=== PATIENT | male | born 2000 ===

== ENCOUNTER 2020-01-13 16:08 | Emergency (ER) | payer MEDICAID ==
[2020-01-13 17:32] VITALS: BP 113/76
[2020-01-13] MEDS ORDERED: ACETAMINOPHEN 500 MG TAB PO ONE (18:55)
--- NOTE | 2020-01-13 18:55 | Emergency Department Report ---
ED Headache HPI - General Chief Complaint: Headache Stated Complaint: MIGRAINE Time Seen by Provider: 01/13/20 18:17 - History of Present Illness Initial Comments: The patient was evaluated in the emergency department for symptoms described in the history of present illness. He/she was evaluated in the context of the global COVID-19 pandemic, which necessitated consideration that the patient might be at risk for infection with the virus that causes COVID-19. Institutional protocols and algorithms that pertain to the evaluation of patients at risk for COVID-19 are in a state of rapid change based on information released by regulatory bodies including the CDC and federal and state organizations. These policies and algorithms were followed during the patient's care in the emergency department. Please note that these policies, procedures and recommendations changed on a rapid basis. 19-year-old male was brought in to the ER by EMS for headache. Patient states that he is at the [facility] program in [place] and they would not give him anything for his headache. Patient states that Motrin usually helps with his migraines but ibuprofen white coated causes him to vomit. Patient denies any head injury and states that his headache is all over. Patient is taking nothing for his pain. Patient denies any nausea no vomiting no diarrhea no ear pain no change of vision no lights sensitivity. Patient is playing games on his cell phone. Patient has a past medical history of asthma schizophrenia, bipolar, ADHD, PTSD and OCD. Allergies/Adverse Reactions: Allergies ibuprofen Allergy (Verified 01/13/20 17:26) Hives Home Medications: Ambulatory Orders Acetaminophen [Tylenol] 1,000 mg PO Q6HR PRN #20 tablet 01/13/20 ED Review of Systems ROS: Stated complaint: MIGRAINE Other details as noted in HPI Comment: All other systems reviewed and negative ED Past Medical Hx - Past Medical History Previous Medical History?: Yes Hx Psychiatric Treatment: Yes (Schizophrenis, Bipolar, ADHD, PTSD and OCD) Hx Asthma: Yes - Surgical History Past Surgical History?: No - Social History Smoking Status: Former Smoker Substance Use Type: None - Medications Home Medications: Home Medications Medication Instructions Recorded Confirmed Last Taken Type Acetaminophen [Tylenol] 1,000 mg PO Q6HR PRN #20 tablet 01/13/20 Unknown Rx ED Physical Exam - General Limitations: No Limitations General appearance: alert, in no apparent distress - Head Head exam: Present: atraumatic, normocephalic - Eye Eye exam: Present: normal appearance - ENT ENT exam: Present: mucous membranes moist - Neck Neck exam: Present: normal inspection - Respiratory Respiratory exam: Absent: respiratory distress, accessory muscle use - Cardiovascular Cardiovascular Exam: Present: regular rate, normal rhythm. Absent: systolic murmur, diastolic murmur, rubs, gallop - GI/Abdominal GI/Abdominal exam: Present: soft, normal bowel sounds - Rectal Rectal exam: Present: deferred - Extremities Exam Extremities exam: Present: normal inspection - Back Exam Back exam: Present: normal inspection - Neurological Exam Neurological exam: Present: alert, oriented X3, normal gait - Expanded Neurological Exam Expanded Cranial nerves: EOM's Intact: Normal, Gag Reflex: Normal, Tongue Deviation: Normal, Nystagmus: Normal, Facial Sensation: Normal, Facial Palsy with Forehead Movement: Normal, Facial Palsy without Forehead Movement: Normal Cerebellar function: Finger to Nose: Normal, Heel to Keenan: Normal, Romberg: Normal Upper motor neuron: Daniel Neglect: Normal, Pronator Drift: Normal, Sensory Extinction: Normal Sensory exam: Upper Extremity Light Touch: Normal, Upper Extremity Pin Prick: Normal, Upper Extremity Temperature: Normal, UE 2 Point Discrimination: Normal, Lower Extremity Light Touch: Normal, Lower Extremity Pin Prick: Normal, Lower Extremity Temperature: Normal, LE 2 Point Discrimination: Normal Motor strength exam: RUE: 4, LUE: 4, RLE: 4, LLE: 4 Best Eye Response ([place]): (4) open spontaneously Best Motor Response ([place]): (6) obeys commands Best Verbal Response ([place]): (5) oriented Willis Total: 15 - Psychiatric Psychiatric exam: Present: normal affect, normal mood - Skin Skin exam: Present: warm, dry, intact, normal color. Absent: rash ED Course Vital Signs 01/13/20 17:29 Temperature 97.5 F L Pulse Rate 82 Respiratory 20 Rate Blood Pressure 113/76 O2 Sat by Pulse 97 Oximetry ED Medical Decision Making - Medical Decision Making 19-year-old male was brought in to the ER by EMS for headache. Patient states that he is at the [facility] program in [place] and they would not give him anything for his headache. Patient states that Motrin usually helps with his migraines but ibuprofen white coated causes him to vomit. Patient denies any head injury and states that his headache is all over. Patient is taking nothing for his pain. Patient denies any nausea no vomiting no diarrhea no ear pain no change of vision no lights sensitivity. Patient is playing games on his cell phone. Patient has a past medical history of asthma schizophrenia, bipolar, ADHD, PTSD and OCD. Patient be given 1 g of acetaminophen. Patient be discharged home with prescription for acetaminophen 500 mg 2 tabs p.o. every 6 hours as needed for headache. Instructed to increase his water intake. Critical care attestation.: If time is entered above; I have spent that time in minutes in the direct care of this critically ill patient, excluding procedure time. ED Disposition Clinical Impression: Headache Qualifiers: Headache type: unspecified Headache chronicity pattern: acute headache Intractability: intractable Qualified Code(s): R51.9 - Headache, unspecified Disposition: DC-01 TO HOME OR SELFCARE Is pt being admited?: No Does the pt Need Aspirin: No Condition: Stable Instructions: Acute Headache (ED) Additional Instructions: Please take Tylenol as needed for pain management. Prescriptions: Acetaminophen [Tylenol] 1,000 mg PO Q6HR PRN #20 tablet PRN Reason: Pain , Severe (7-10) Referrals: You are, primary care provider [Other] - 3-5 Days
== END 2020-01-13 19:25 | disposition home or self-care (01) ==
LOC: ED 16:08
DX: R51.9 Headache, unspecified (principal); F20.9 Schizophrenia, unspecified; J45.909 Unspecified asthma, uncomplicated; F31.9 Bipolar disorder, unspecified; Z79.899 Other long term (current) drug therapy; Z88.8 Allergy status to other drugs, medicaments and biological substances

== ENCOUNTER 2020-01-18 10:03 | Emergency (ER) | payer MEDICAID ==
[2020-01-18 10:28] VITALS: BP 116/72
[2020-01-18] MEDS ORDERED: ONDANSETRON 4 MG/2 ML INJ IV ONE (14:17)
--- NOTE | 2020-01-18 14:20 | Emergency Department Report ---
ED Abdominal Pain HPI - General Chief Complaint: Abdominal Pain Stated Complaint: ABD PAINS Time Seen by Provider: 01/18/20 13:59 Source: patient Mode of arrival: Ambulatory Limitations: No Limitations - History of Present Illness Initial Comments: Is a pleasant 19-year-old male who presents the emergency department chief complaint of generalized abdominal pain for the past 2 days. Patient reports it is periumbilical and associated with nausea, vomiting and diarrhea. He reports he has had some sweats but denies any fevers. He has past medical history of schizophrenia, bipolar, ADHD, PTSD, OCD and asthma. He denies any bloody or bilious vomiting, bloody stools, melena, chest pain, shortness of breath, weakness, headache, blurry vision or any other associated symptoms. - Related Data Previous Rx's Medication Instructions Recorded Last Taken Type Acetaminophen [Tylenol] 1,000 mg PO Q6HR PRN #20 tablet 01/13/20 Unknown Rx Dicyclomine [Bentyl] 10 mg PO QID #20 capsule 01/18/20 Unknown Rx Ondansetron [Zofran Odt] 4 mg PO Q8HR #30 tab.rapdis 01/18/20 Unknown Rx Allergies Allergy/AdvReac Type Severity Reaction Status Date / Time ibuprofen Allergy Hives Verified 01/18/20 10:21 ED Review of Systems ROS: Stated complaint: ABD PAINS Other details as noted in HPI Comment: All other systems reviewed and negative Constitutional: denies: chills, fever Eyes: denies: eye pain, eye discharge, vision change ENT: denies: ear pain, throat pain Respiratory: denies: cough, shortness of breath, wheezing Cardiovascular: denies: chest pain, palpitations Endocrine: no symptoms reported Gastrointestinal: as per HPI, abdominal pain, nausea, vomiting, diarrhea Genitourinary: denies: urgency, dysuria Musculoskeletal: denies: back pain, joint swelling, arthralgia Skin: denies: rash, lesions Neurological: denies: headache, weakness, paresthesias Psychiatric: denies: anxiety, depression Hematological/Lymphatic: denies: easy bleeding, easy bruising ED Past Medical Hx - Past Medical History Hx Psychiatric Treatment: Yes (Schizophrenis, Bipolar, ADHD, PTSD and OCD) Hx Asthma: Yes - Surgical History Past Surgical History?: No - Social History Smoking Status: Never Smoker Substance Use Type: None - Medications Home Medications: Home Medications Medication Instructions Recorded Confirmed Last Taken Type Acetaminophen [Tylenol] 1,000 mg PO Q6HR PRN #20 tablet 01/13/20 Unknown Rx Dicyclomine [Bentyl] 10 mg PO QID #20 capsule 01/18/20 Unknown Rx Ondansetron [Zofran Odt] 4 mg PO Q8HR #30 tab.rapdis 01/18/20 Unknown Rx ED Physical Exam - General Limitations: No Limitations General appearance: alert, in no apparent distress - Head Head exam: Present: atraumatic, normocephalic - Eye Eye exam: Present: normal appearance, PERRL, EOMI Pupils: Present: normal accommodation - ENT ENT exam: Present: normal exam, normal orophraynx, mucous membranes moist - Neck Neck exam: Present: normal inspection, full ROM. Absent: tenderness, meningismus - Respiratory Respiratory exam: Present: normal lung sounds bilaterally. Absent: respiratory distress, wheezes, rales, rhonchi, stridor - Cardiovascular Cardiovascular Exam: Present: regular rate, normal rhythm, normal heart sounds. Absent: systolic murmur, diastolic murmur, rubs, gallop - GI/Abdominal GI/Abdominal exam: Present: tenderness (Generalized tenderness to palpation, tenderness over McBurney's point, no rebound), guarding, normal bowel sounds - Rectal Rectal exam: Present: deferred - Extremities Exam Extremities exam: Present: normal inspection, full ROM, normal capillary refill. Absent: tenderness, calf tenderness - Back Exam Back exam: Present: normal inspection, full ROM. Absent: tenderness, CVA tenderness (R), CVA tenderness (L) - Neurological Exam Neurological exam: Present: alert, oriented X3, normal gait - Psychiatric Psychiatric exam: Present: normal affect, normal mood - Skin Skin exam: Present: warm, dry, intact, normal color. Absent: rash ED Course Vital Signs 01/18/20 10:22 Temperature 98.3 F Pulse Rate 72 Respiratory 16 Rate Blood Pressure 116/72 O2 Sat by Pulse 96 Oximetry ED Medical Decision Making - Lab Data Result diagrams: 01/18/20 14:16 01/18/20 14:16 Lab Results 01/18/20 01/18/20 Range/Units 14:16 14:16 WBC 7.9 (4.5-11.0) K/mm3 RBC 5.12 H (3.65-5.03) M/mm3 Hgb 15.9 H (11.8-15.2) gm/dl Hct 45.0 (35.5-45.6) % MCV 88 (84-94) fl MCH 31 (28-32) pg MCHC 35 H (32-34) % RDW 12.8 L (13.2-15.2) % Plt Count 214 (140-440) K/mm3 Lymph % (Auto) 22.4 (13.4-35.0) % Ferry % (Auto) 8.0 H (0.0-7.3) % Eos % (Auto) 1.1 (0.0-4.3) % Baso % (Auto) 0.3 (0.0-1.8) % Lymph # (Auto) 1.8 (1.2-5.4) K/mm3 Ferry # (Auto) 0.6 (0.0-0.8) K/mm3 Eos # (Auto) 0.1 (0.0-0.4) K/mm3 Baso # (Auto) 0.0 (0.0-0.1) K/mm3 Seg Neutrophils % 68.2 (40.0-70.0) % Seg Neutrophils # 5.4 (1.8-7.7) K/mm3 Sodium 137 (137-145) mmol/L Potassium 4.3 (3.6-5.0) mmol/L Chloride 97.3 L (98-107) mmol/L Carbon Dioxide 25 (22-30) mmol/L Anion Gap 19 mmol/L BUN 12 (9-20) mg/dL Creatinine 0.8 (0.8-1.3) mg/dL Estimated GFR > 60 ml/min BUN/Creatinine Ratio 15 % Glucose 84 (75-100) mg/dL Calcium 9.7 (8.4-10.2) mg/dL Total Bilirubin 0.40 (0.1-1.2) mg/dL AST 18 (5-40) units/L ALT 23 (7-56) units/L Alkaline Phosphatase 119 (35-129) units/L Total Protein 7.8 (6.3-8.2) g/dL Albumin 4.8 (3.9-5) g/dL Albumin/Globulin Ratio 1.6 % Lipase 31 (13-60) units/L - Radiology Data Radiology results: report reviewed Cat Scan Report Signed Patient: HAIDER GOMEZ MR#: [id number] : 2000 Acct:[id number] Age/Sex: 19 / M ADM Date: 01/18/20 Loc: ED Attending Dr: Ordering Physician: JANET SPRINGER Date of Service: 01/18/20 Procedure(s): CT abdomen pelvis w con Accession Number(s): [id number] cc: JANET SPRINGER CT ABDOMEN AND PELVIS WITH CONTRAST HISTORY: severe abdomianl pain, N/V COMPARISON: None. TECHNIQUE: Axial CT images were obtained through the abdomen and pelvis after 100 cc of Omnipaque 300 intravenously. Sagittal and coronal reformatted images. All CT scans at this location are performed using CT dose reduction for ALARA by means of automated exposure control. FINDINGS: CT ABDOMEN: Lung Bases: Clear. Liver: No significant abnormality. Biliary: No significant abnormality. Spleen: No significant abnormality. Unenlarged. Pancreas: No significant abnormality. Adrenals: No significant abnormality. Kidneys: No significant abnormality. Lymphatics: No lymphadenopathy. Vasculature: No significant abnormality. Bowel/Peritoneum: No significant abnormality. No free air. No free fluid. Normal appendix. CT PELVIS: : No significant abnormality. Osseous Structures: No significant abnormality. Additional Findings: None IMPRESSION: No significant abnormality. Signer Name: David Barker Jr, MD Signed: 01/18/2020 4:23 PM Workstation Name: [id number] Transcribed By: TTR Dictated By: DAVID BARKER JR, MD Electronically Authenticated By: DAVID BARKER JR, MD Signed Date/Time: 01/18/201622 DD/ 161 - Medical Decision Making Patient's labs returned relatively unremarkable CT was unremarkable. The patient's repeat abdominal exam was benign. Patient felt much better and wanted to go home. Will discharge patient stable condition with outpatient follow-up and supportive treatment. He was instructed to return to the emerge department changing worsening symptoms. He verbalized understanding the diagnosis, treatment plan and follow-up instructions and all his questions were answered. - Differential Diagnosis Appendicitis, small bowel obstruction, colitis, cholecystitis Critical care attestation.: If time is entered above; I have spent that time in minutes in the direct care of this critically ill patient, excluding procedure time. ED Disposition Clinical Impression: Nonspecific abdominal pain Nausea and vomiting Qualifiers: Vomiting type: unspecified Vomiting Intractability: non-intractable Qualified Code(s): R11.2 - Nausea with vomiting, unspecified Disposition: - TO HOME OR SELFCARE Is pt being admited?: No Condition: Stable Instructions: Acute Abdominal Pain (ED) Prescriptions: Dicyclomine [Bentyl] 10 mg PO QID #20 capsule Ondansetron [Zofran Odt] 4 mg PO Q8HR #30 tab.rapdis Referrals: PRIMARY CARE, [Primary Care Provider] - 3-5 Days [facility] [Provider Group] - 3-5 Days Forms: Work/School Release Form(ED) Time of Disposition: 16:41
[2020-01-18 15:01] LABS: Basophils % (Auto) 0.3 % (0.0-1.8); Eosinophils # (Auto) 0.1 K/mm3 (0.0-0.4); Eosinophils % (Auto) 1.1 % (0.0-4.3); Hemoglobin 15.9 gm/dl (11.8-15.2); Lymphocytes # (Auto) 1.8 K/mm3 (1.2-5.4); Lymphocytes % (Auto) 22.4 % (13.4-35.0); Mean Corpuscular HGB Conc 35 % (32-34); Mean Corpuscular Volume 88 fl (84-94); Monocytes # (Auto) 0.6 K/mm3 (0.0-0.8); Platelet Count 214 K/mm3 (140-440); Red Blood Count 5.12 M/mm3 (3.65-5.03); Red Cell Distribution Width 12.8 % (13.2-15.2)
[2020-01-18 15:20] LABS: Alanine Aminotransferase 23 units/L (7-56); Albumin 4.8 g/dL (3.9-5); BUN/Creatinine Ratio 15; Blood Urea Nitrogen 12 mg/dL (9-20); Calcium 9.7 mg/dL (8.4-10.2); Hemolysis Index 20
--- NOTE | 2020-01-18 16:27 | Cat Scan Report ---
CT ABDOMEN AND PELVIS WITH CONTRAST HISTORY: severe abdomianl pain, N/V COMPARISON: None. TECHNIQUE: Axial CT images were obtained through the abdomen and pelvis after 100 cc of Omnipaque 300 intravenously. Sagittal and coronal reformatted images. All CT scans at this location are performed using CT dose reduction for ALARA by means of automated exposure control. FINDINGS: CT ABDOMEN: Lung Bases: Clear. Liver: No significant abnormality. Biliary: No significant abnormality. Spleen: No significant abnormality. Unenlarged. Pancreas: No significant abnormality. Adrenals: No significant abnormality. Kidneys: No significant abnormality. Lymphatics: No lymphadenopathy. Vasculature: No significant abnormality. Bowel/Peritoneum: No significant abnormality. No free air. No free fluid. Normal appendix. CT PELVIS: : No significant abnormality. Osseous Structures: No significant abnormality. Additional Findings: None IMPRESSION: No significant abnormality. Signer Name: David Ferreira Jr, MD Signed: 01/18/2020 4:23 PM Workstation Name: [id number]
== END 2020-01-18 17:14 | disposition home or self-care (01) ==
LOC: ED 10:03
DX: R10.33 Periumbilical pain (principal); R11.2 Nausea with vomiting, unspecified; F20.89 Other schizophrenia; F31.9 Bipolar disorder, unspecified; F90.8 Attention-deficit hyperactivity disorder, other type; F42.8 Other obsessive-compulsive disorder; F43.11 Post-traumatic stress disorder, acute; J45.909 Unspecified asthma, uncomplicated
CPT/HCPCS: 36415; 74177; 80053; 83690; 85025; 99284; Q9967

== ENCOUNTER 2020-01-20 09:31 | Emergency (ER) | payer MEDICAID ==
[2020-01-20 09:37] VITALS: BP 114/75
--- NOTE | 2020-01-20 10:29 | Emergency Department Report ---
ED Medical Clearance HPI - General Chief complaint: Medical Clearance Stated complaint: FEEL TIRED Time Seen by Provider: 01/20/20 10:25 Source: patient Mode of arrival: Ambulatory - History of Present Illness Initial comments: The patient was evaluated in the emergency department for symptoms described in the history of present illness. He/she was evaluated in the context of the global COVID-19 pandemic, which necessitated consideration that the patient might be at risk for infection with the virus that causes COVID-19. Institutional protocols and algorithms that pertain to the evaluation of patients at risk for COVID-19 are in a state of rapid change based on information released by regulatory bodies including the CDC and federal and state organizations. These policies and algorithms were followed during the patient's care in the emergency department. Please note that these policies, procedures and recommendations changed on a rapid basis. 19-year-old male who is at [facility] presents to the emergency room stating he would like his medications adjusted due to feeling fatigue. Patient states that he has not been taking his psych meds for about 7 to 8 days. He reports that he is focusing well but his sleep pattern is terrible. Patient states he is eating well drinking well. He does admit to nausea and diarrhea. Patient was recently seen here on 01/18/2020 for abdominal pain and nausea and was prescribed Zofran and Bentyl but has not started the medication secondary to [facility] has not received the medicine or dispensed to patient. Patient has a multitude of psychiatric disorders consisting of ADHD, schizophrenia, bipolar PTSD and OCD. Patient reports he has no thoughts of hurting himself or others. Patient states he has plans to go to college and be a doctor. Patient states that he was adopted but was treated very currently. Reason for Medical Clearance: psychiatric condition Alledged Intoxication: No Compliant with Home Medications: No Traumatic Symptoms: denies traumatic injury Associated Symptoms: denies: shortness of breath, diaphoresis, denies other symptoms, confusion, cough, headaches, anorexia, malaise Treatments Prior to Arrival: none Home medications: Previous Rx's Medication Instructions Recorded Last Taken Type Acetaminophen [Tylenol] 1,000 mg PO Q6HR PRN #20 tablet 01/13/20 Unknown Rx Dicyclomine [Bentyl] 10 mg PO QID #20 capsule 01/18/20 Unknown Rx Ondansetron [Zofran Odt] 4 mg PO Q8HR #30 tab.rapdis 01/18/20 Unknown Rx Allergies/Adverse reactions: Allergies Allergy/AdvReac Type Severity Reaction Status Date / Time ibuprofen Allergy Hives Verified 01/18/20 10:21 ED Review of Systems ROS: Stated complaint: FEEL TIRED Other details as noted in HPI Comment: All other systems reviewed and negative ED Past Medical Hx - Past Medical History Previous Medical History?: Yes Hx Psychiatric Treatment: Yes (Schizophrenis, Bipolar, ADHD, PTSD and OCD) Hx Asthma: Yes - Social History Smoking Status: Never Smoker Substance Use Type: None - Medications Home Medications: Home Medications Medication Instructions Recorded Confirmed Last Taken Type Acetaminophen [Tylenol] 1,000 mg PO Q6HR PRN #20 tablet 01/13/20 Unknown Rx Dicyclomine [Bentyl] 10 mg PO QID #20 capsule 01/18/20 Unknown Rx Ondansetron [Zofran Odt] 4 mg PO Q8HR #30 tab.rapdis 01/18/20 Unknown Rx ED Physical Exam - General Limitations: No Limitations General appearance: alert, in no apparent distress - Head Head exam: Present: atraumatic, normocephalic - Eye Eye exam: Present: normal appearance - ENT ENT exam: Present: mucous membranes dry - Neck Neck exam: Present: normal inspection, full ROM - Respiratory Respiratory exam: Absent: accessory muscle use - Neurological Exam Neurological exam: Present: alert, oriented X3, normal gait - Expanded Neurological Exam Expanded Best Eye Response ([place]): (4) open spontaneously Best Motor Response ([place]): (6) obeys commands Best Verbal Response ([place]): (5) oriented Willis Total: 15 - Psychiatric Psychiatric exam: Present: normal affect, normal mood. Absent: depressed, agitated, anxious, manic, homicidal ideation, suicidal ideation - Skin Skin exam: Present: warm, dry, intact, normal color. Absent: rash ED Course Vital Signs 01/20/20 09:36 Temperature 98.2 F Pulse Rate 73 Respiratory 20 Rate Blood Pressure 114/75 O2 Sat by Pulse 97 Oximetry ED Medical Decision Making - Medical Decision Making 19-year-old male who is at [facility] presents to the emergency room stating he would like his medications adjusted due to feeling fatigue. Patient states that he has not been taking his psych meds for about 7 to 8 days. He reports that he is focusing well but his sleep pattern is terrible. Patient states he is eating well drinking well. He does admit to nausea and diarrhea. Patient was recently seen here on 01/18/2020 for abdominal pain and nausea and was prescribed Zofran and Bentyl but has not started the medication secondary to [place] has not received the medicine or dispensed to patient. Patient has a multitude of psychiatric disorders consisting of ADHD, schizophrenia, bipolar PTSD and OCD. Patient reports he has no thoughts of hurting himself or others. Patient states he has plans to go to college and be a doctor. Patient states that he was adopted but was treated very currently. ED Disposition Clinical Impression: Encounter for medication adjustment Disposition: DC-01 TO HOME OR SELFCARE Is pt being admited?: No Does the pt Need Aspirin: No Condition: Stable Additional Instructions: Please follow-up with your psychiatrist at [facility]. Please have the nursing staff gave you your medications for nausea abdominal pain and Tylenol. Be sure to increase your fluid intake advance your diet as tolerated. Staff needs to give patient his medications. Referrals: [facility] [Other] - 3-5 Days Forms: Work/School Release Form(ED)
== END 2020-01-20 11:01 | disposition home or self-care (01) ==
LOC: ED 09:31
DX: R53.83 Other fatigue (principal); R11.0 Nausea; R19.7 Diarrhea, unspecified; J45.909 Unspecified asthma, uncomplicated; F20.9 Schizophrenia, unspecified; F31.9 Bipolar disorder, unspecified; Z79.899 Other long term (current) drug therapy; Z88.8 Allergy status to other drugs, medicaments and biological substances; Z76.0 Encounter for issue of repeat prescription
CPT/HCPCS: 99282

== ENCOUNTER 2020-01-22 13:42 | Emergency (ER) | payer MEDICAID ==
[2020-01-22 13:46] VITALS: BP 116/67
--- NOTE | 2020-01-22 14:52 | XRay Report ---
CHEST 2 VIEWS INDICATION: chest pain. COMPARISON: None FINDINGS: Support devices: None. Heart: Within normal limits. Lungs/pleura: No acute air space or interstitial disease. No pneumothorax. Additional findings: None. IMPRESSION: No acute findings. Signer Name: David Ferreira Jr, MD Signed: 01/22/2020 2:47 PM Workstation Name: [id number]
--- NOTE | 2020-01-22 15:58 | Emergency Department Report ---
ED Chest Pain HPI - General Chief Complaint: Chest Pain Stated Complaint: CHEST PAINS Time Seen by Provider: 01/22/20 15:51 Source: patient Mode of arrival: Ambulatory Limitations: No Limitations - History of Present Illness Initial Comments: Patient is 19 years old male with history of schizophrenia and ADHD. Patient presented to the ER complaining of left-sided chest pain for the last few weeks. Patient describes his pain as sharp and hurt when he moves or touches hard. Patient denied any shortness of breath. Patient also denied any fever or c hills. No cough. MD Complaint: chest pain -: week(s) Pain Location: left chest Pain Radiation: none Severity: moderate Quality: sharp Consistency: intermittent Improves With: remaining still Worsens With: movement - Related Data Previous Rx's Medication Instructions Recorded Last Taken Type Acetaminophen [Tylenol] 1,000 mg PO Q6HR PRN #20 tablet 01/13/20 Unknown Rx Dicyclomine [Bentyl] 10 mg PO QID #20 capsule 01/18/20 Unknown Rx Ondansetron [Zofran Odt] 4 mg PO Q8HR #30 tab.rapdis 01/18/20 Unknown Rx Allergies Allergy/AdvReac Type Severity Reaction Status Date / Time ibuprofen Allergy Hives Verified 01/18/20 10:21 Heart Score - HEART Score History: Slightly suspicious EKG: Normal Age: < 45 Risk factors: No known risk factors Troponin: < normal limit HEART Score: 0 - Critical Actions Critical Actions: 0-3 pts:0.9-1.7%risk of adverse cardiac event.Candidate for discharge ED Review of Systems ROS: Stated complaint: CHEST PAINS Other details as noted in HPI Comment: All other systems reviewed and negative Constitutional: denies: chills, fever Respiratory: denies: shortness of breath Cardiovascular: chest pain Gastrointestinal: denies: abdominal pain, nausea, vomiting Neurological: denies: headache, weakness ED Past Medical Hx - Past Medical History Previous Medical History?: Yes Hx Psychiatric Treatment: Yes (Schizophrenis, Bipolar, ADHD, PTSD and OCD) Hx Asthma: Yes - Social History Smoking Status: Never Smoker Substance Use Type: None - Medications Home Medications: Home Medications Medication Instructions Recorded Confirmed Last Taken Type Acetaminophen [Tylenol] 1,000 mg PO Q6HR PRN #20 tablet 01/13/20 Unknown Rx Dicyclomine [Bentyl] 10 mg PO QID #20 capsule 01/18/20 Unknown Rx Ondansetron [Zofran Odt] 4 mg PO Q8HR #30 tab.rapdis 01/18/20 Unknown Rx ED Physical Exam - General Limitations: No Limitations General appearance: alert, in no apparent distress - Head Head exam: Present: atraumatic, normocephalic, normal inspection - Eye Eye exam: Present: normal appearance - ENT ENT exam: Present: normal exam - Respiratory Respiratory exam: Present: normal lung sounds bilaterally, chest wall tenderness. Absent: respiratory distress, wheezes, rales - Cardiovascular Cardiovascular Exam: Present: regular rate, normal rhythm, normal heart sounds - GI/Abdominal GI/Abdominal exam: Present: soft, normal bowel sounds. Absent: distended, tenderness, guarding, rebound, rigid, mass, bruit, pulsatile mass, hernia - Extremities Exam Extremities exam: Present: normal inspection, full ROM, normal capillary refill. Absent: pedal edema, calf tenderness - Back Exam Back exam: Present: normal inspection, full ROM. Absent: CVA tenderness (R), CVA tenderness (L) - Neurological Exam Neurological exam: Present: alert, oriented X3, CN II-XII intact - Psychiatric Psychiatric exam: Present: normal mood. Absent: homicidal ideation, suicidal ideation - Skin Skin exam: Present: warm, intact, normal color ED Course Vital Signs 01/22/20 13:45 Temperature 97.8 F Pulse Rate 77 Respiratory 16 Rate Blood Pressure 116/67 [Right] O2 Sat by Pulse 97 Oximetry ED Medical Decision Making - Radiology Data Radiology results: report reviewed - Medical Decision Making Patient is 19 years old male with history of schizophrenia and ADHD. Patient presented to the ER complaining of left-sided chest pain for the last few weeks. Patient describes his pain as sharp and hurt when he moves or touches hard. Patient denied any shortness of breath. Patient also denied any fever or chills. No cough. Chest x-ray is unremarkable. Chest pain is reproducible. I believe this is most likely costochondritis. Patient given prescription for Naprosyn and advised to follow-up with his primary doctor in the next 2 to 3 days and return to the ER if he develop any new symptoms. Critical care attestation.: If time is entered above; I have spent that time in minutes in the direct care of this critically ill patient, excluding procedure time. ED Disposition Clinical Impression: Chest pain Disposition: DC-01 TO HOME OR SELFCARE Is pt being admited?: No Condition: Stable Instructions: Chest Pain (ED), Costochondritis (ED) Referrals: PRIMARY CARE,MD [Primary Care Provider] - 3-5 Days
== END 2020-01-22 16:21 | disposition home or self-care (01) ==
LOC: ED 13:42
DX: R07.9 Chest pain, unspecified (principal); F25.0 Schizoaffective disorder, bipolar type; J45.909 Unspecified asthma, uncomplicated; Z79.899 Other long term (current) drug therapy; Z88.6 Allergy status to analgesic agent
CPT/HCPCS: 71046